=== PATIENT | female | born 1960 | race African-American/Black ===

== ENCOUNTER 2017-11-29 19:35 | Emergency (ER) | payer MEDICAID, OTHER, SELFPAY ==
[2017-11-29] MEDS ORDERED: Lidocaine Viscous Sol 2% 15 ml UD Cup ONE (19:54)
[2017-11-29] MEDS ORDERED: Mag-Al Plus 1200 MG/1200 MG/120 MG/30 ML UDCUP ONE (19:54)
[2017-11-29] MEDS ORDERED: diphenhydrAMINE 25 MG CAP ONE (19:57)
--- NOTE | 2017-11-29 20:37 | RAD ---
PORTABLE AP CHEST X-RAY 11/29/17 HISTORY: Chest pain, insect bite to left arm. FINDINGS: The cardiac silhouette and pulmonary vasculature are within normal limits. The lungs are clear. There is right convexed scoliosis of the thoracic spine. IMPRESSION: 1. No acute cardiopulmonary process. 2. Scoliosis thoracic spine. POS: [facility]
[2017-11-29 20:42] LABS: Mean Corpuscular HGB CONC 34.5 g/dL (32.0-36.0); Mean Corpuscular Hemoglobin 29.1 pg (27.0-31.0); Mean Corpuscular Volume 84.3 fl (81.0-99.0); Mean Platelet Volume 8.1 fL (7.4-10.4); Platelet Count 274 thou/uL (130-400); RBC Distribution Width 12.6 % (11.5-14.5); Red Blood Cell (RBC) Count 4.48 mill/uL (4.20-5.40); White Blood Cell (WBC) Count 5.2 thou/uL (4.8-10.8)
[2017-11-29 20:46] LABS: Anion Gap 17 mmol/L (10-20); BUN (Urea Nitrogen) 17 mg/dL (9.8-20.1); Calc. Creatinine Clearance 0 mL/min (70-130); Calcium 9.8 mg/dL (7.8-10.44); Carbon Dioxide 24 mmol/L (22-29); Chloride 97 mmol/L (98-107); Estimated GFR-MDRD 55; Glucose 77 mg/dL (70-105); Potassium 3.8 mmol/L (3.5-5.1); Sodium 134 mmol/L (136-145)
[2017-11-29 20:50] LABS: CKMB 2.3 ng/mL (0-6.6); Troponin I Less than 0.010 ng/mL (< 0.028)
[2017-11-29 20:58] LABS: Eosinophils 2 % (0-10); Lymphocytes 31 % (21-51); MDiff Complete? YES; Monocytes 11 % (0-10); Neutrophil 55 % (42-75); Ovalocytes SLIGHT = 2-5 cells (100X) (0-1/hpf); PLT Morphology Comment Appears Adequate
== END 2017-11-29 21:27 | disposition home or self-care (01) ==
LOC: NAV ERS 19:35
DX: S50.862A Insect bite (nonvenomous) of left forearm, initial encounter (principal); K21.9 Gastro-esophageal reflux disease without esophagitis; I10 Essential (primary) hypertension; F17.200 Nicotine dependence, unspecified, uncomplicated; Z79.899 Other long term (current) drug therapy; W57.XXXA Bitten or stung by nonvenomous insect and other nonvenomous arthropods, initial encounter
CPT/HCPCS: 71045; 80048; 82553; 84484; 85025; 93005